=== PATIENT | male | born 1985 | race Hispanic/Latino ===

== ENCOUNTER 2017-11-14 19:58 | Emergency (ER) | payer BC ==
--- NOTE | 2017-11-14 20:44 | EDPHYS ---
Physician Documentation [facility] Name: Hector Bonilla Age: 32 yrs Sex: Male : 1985 Arrival Date: 11/14/2017 Time: 19:59 Bed 11 Private MD: Mayra James Z ED Physician Vidal Bowden HPI: 11/14 20:41 This 32 yrs old Male presents to ER via Ambulatory with complaints of Pain tw4 With Urination. 20:41 The patient presents with urinary symptoms, dysuria, urinary frequency. Onset: The tw4 symptoms/episode began/occurred today. Modifying factors: The symptoms are alleviated by nothing. Associated signs and symptoms: The patient has no apparent associated signs or symptoms. Severity of symptoms: At their worst the symptoms were moderate, in the emergency department the symptoms are unchanged. The patient has not experienced similar symptoms in the past. Historical: - Allergies: 20:37 No Known Allergies; jd3 - Home Meds: 20:37 Prilosec Oral [Active]; jd3 - PMHx: 20:37 None; jd3 - PSHx: 20:37 Cholecystectomy; thumb sx; jd3 - Immunization history:: Adult Immunizations up to date. - Social history:: Smoking status: Patient/guardian denies using tobacco. - Ebola Screening: : Patient negative for fever greater than or equal to 101.5 degrees Fahrenheit, and additional compatible Ebola Virus Disease symptoms. ROS: 20:41 Constitutional: Negative for fever, chills, and weight loss. tw4 20:41 : Positive for urinary symptoms, hematuria, foul smelling urine, Negative for injury or acute deformity, pelvic pain, flank pain, burning with urination, difficulty urinating. Exam: 20:41 Constitutional: This is a well developed, well nourished patient who is awake, alert, tw4 and in no acute distress. Head/Face: Normocephalic, atraumatic. Chest/axilla: Normal chest wall appearance and motion. Nontender with no deformity. No lesions are appreciated. Cardiovascular: Regular rate and rhythm with a normal S1 and S2. No gallops, murmurs, or rubs. Normal PMI, no JVD. No pulse deficits. Respiratory: Lungs have equal breath sounds bilaterally, clear to auscultation and percussion. No rales, rhonchi or wheezes noted. No increased work of breathing, no retractions or nasal flaring. 20:41 Abdomen/GI: Inspection: abdomen appears normal, Bowel sounds: normal, Palpation: mild abdominal tenderness, in the suprapubic area. Vital Signs: 20:37 BP 140 / 79; Pulse 83; Resp 17 S; Temp 99.5(O); Pulse Ox 97% on R/A; Weight 117.93 kg jd3 (R); Height 5 ft. 11 in. (180.34 cm) (R); Pain 8/10; 20:37 Body Mass Index 36.26 (117.93 kg, 180.34 cm) jd3 MDM: 20:27 Patient medically screened. tw4 20:41 Differential diagnosis: nonspecific abdominal pain, UTI, urinary retention, urethritis. tw4 Data reviewed: vital signs, nurses notes. Counseling: I had a detailed discussion with the patient and/or guardian regarding: the historical points, exam findings, and any diagnostic results supporting the discharge/admit diagnosis, radiology results. Special discussion: I discussed with the patient/guardian in detail that at this point there is no indication for admission to the hospital. It is understood, however, that if the symptoms persist or worsen the patient needs to return immediately for re-evaluation. 11/14 20:42 Order name: Urine Dipstick--Ancillary (enter results) 11/14 20:28 Order name: Urine Dipstick-Ancillary (obtain specimen); Complete Time: 20:41 tw4 11/14 20:42 Order name: Urine Microscopic Only 11/14 20:42 Order name: Urine Culture Administered Medications: 20:49 Drug: Cipro 500 mg Route: PO; jd3 20:49 Follow up: Response: Medication administered at discharge. jd3 Disposition: 11/14/17 20:44 Discharged to Home. Impression: Urinary tract infection, site not specified. - Condition is Stable. - Discharge Instructions: Urinary Tract Infection, Antibiotic Use, [id number]. - Prescriptions for Cipro 500 mg Oral Tablet - take 1 tablet by ORAL route every 12 hours for 10 days; 20 tablet. - Work release form, Medication Reconciliation Form, Thank You Letter, Antibiotic Education, Prescription Opioid Use form. - Follow up: Private Physician; When: As needed; Reason: Recheck today's complaints, Re-evaluation by your physician. - Problem is new. - Symptoms have improved. Signatures: Dispatcher [employer] Arturo Desai RN RN jd3 Vidal Bowden MD MD tw4 Corrections: (The following items were deleted from the chart) 20:57 20:44 11/14/2017 20:44 Discharged to Home. Impression: Urinary tract infection, site jd3 not specified. Condition is Stable. Forms are Medication Reconciliation Form, Thank You Letter, Antibiotic Education, Prescription Opioid Use. Follow up: Private Physician; When: As needed; Reason: Recheck today's complaints, Re-evaluation by your physician. Problem is new. Symptoms have improved. tw4
--- NOTE | 2017-11-14 20:44 | ER ---
Nurse's Notes [facility] Name: Hector Bonilla Age: 32 yrs Sex: Male : 1985 Arrival Date: 11/14/2017 Time: 19:59 Bed 11 Private MD: Mayra James Z Diagnosis: Urinary tract infection, site not specified Presentation: 11/14 20:33 Presenting complaint: Patient states: "Around 1700, I started having really bad pains jd3 when I urinate. I started to pee blood with clots shortly after, and now it all just feels sore and hurts when I pee.". Transition of care: patient was not received from another setting of care. Onset of symptoms was November 14, 2017. Risk Assessment: Do you want to hurt yourself or someone else? Patient reports no desire to harm self or others. Initial Sepsis Screen: Does the patient meet any 2 criteria? No. Patient's initial sepsis screen is negative. Does the patient have a suspected source of infection? No. Patient's initial sepsis screen is negative. Care prior to arrival: None. 20:33 Method Of Arrival: Ambulatory jd3 20:33 Acuity: MIGUELITO 3 jd3 Historical: - Allergies: 20:37 No Known Allergies; jd3 - Home Meds: 20:37 Prilosec Oral [Active]; jd3 - PMHx: 20:37 None; jd3 - PSHx: 20:37 Cholecystectomy; thumb sx; jd3 - Immunization history:: Adult Immunizations up to date. - Social history:: Smoking status: Patient/guardian denies using tobacco. - Ebola Screening: : Patient negative for fever greater than or equal to 101.5 degrees Fahrenheit, and additional compatible Ebola Virus Disease symptoms. Screenin:42 Abuse screen: Denies threats or abuse. Nutritional screening: No deficits noted. jd3 Tuberculosis screening: No symptoms or risk factors identified. Fall Risk Ambulatory Aid- None/Bed Rest/Nurse Assist (0 pts). Gait- Normal/Bed Rest/Wheelchair (0 pts) Mental Status- Oriented to own ability (0 pts). Total Khan Fall Scale indicates No Risk (0-24 pts). Assessment: 20:38 General: Appears uncomfortable, Behavior is calm, cooperative, appropriate for age. jd3 Pain: Complains of pain in groin Pain currently is 8 out of 10 on a pain scale. Quality of pain is described as aching, Pain began 3 hours ago. Is intermittent, Aggravated by using the restroom. Neuro: Level of Consciousness is awake, alert, obeys commands, Oriented to person, place, time, situation, Appropriate for age. Cardiovascular: Capillary refill < 3 seconds Patient's skin is warm and dry. Respiratory: Airway is patent Respiratory effort is even, unlabored, Respiratory pattern is regular, symmetrical. GI: Abdomen is round Abd is soft and non tender X 4 quads. Reports nausea. : Urine is blood tinged, Reports pain in suprapubic area scrotum, with urination, Pain is 8 out of 10 on a pain scale. Scrotal pain: sudden onset urinary frequency. EENT: No signs and/or symptoms were reported regarding the EENT system. Derm: Skin is intact, Skin is dry, Skin is normal, Skin temperature is warm. Musculoskeletal: Circulation, motion, and sensation intact. Range of motion: intact in all extremities. 20:56 Reassessment: Patient appears in no apparent distress at this time. Patient and/or jd3 family updated on plan of care and expected duration. Pain level reassessed. Patient is alert, oriented x 3, equal unlabored respirations, skin warm/dry/pink. pt reported understanding of discharge instructions, even and steady gait upon discharge. Vital Signs: 20:37 BP 140 / 79; Pulse 83; Resp 17 S; Temp 99.5(O); Pulse Ox 97% on R/A; Weight 117.93 kg jd3 (R); Height 5 ft. 11 in. (180.34 cm) (R); Pain 8/10; 20:37 Body Mass Index 36.26 (117.93 kg, 180.34 cm) jd3 ED Course: 19:59 Patient arrived in ED. ds1 20:00 Mayra James MD is Private Physician. ds1 20:17 Vidal Bowden MD is Attending Physician. tw4 20:33 Arturo Zambrano RN is Primary Nurse. jd3 20:35 Triage completed. jd3 20:38 Arm band placed on. jd3 20:42 Patient has correct armband on for positive identification. Call light in reach. Adult jd3 w/ patient. 20:56 No provider procedures requiring assistance completed. Patient did not have IV access jd3 during this emergency room visit. Administered Medications: 20:49 Drug: Cipro 500 mg Route: PO; jd3 20:49 Follow up: Response: Medication administered at discharge. jd3 Outcome: 20:44 Discharge ordered by . tw4 20:57 Discharged to home ambulatory, with family. jd3 20:57 Condition: stable 20:57 Discharge instructions given to patient, family, Instructed on discharge instructions, follow up and referral plans. medication usage, Demonstrated understanding of instructions, follow-up care, medications, Prescriptions given X 1. 20:57 Patient left the ED. jd3 Addendum: 11/18/2017 07:44 Addendum: Culture Results: Positive urine culture. No further action required. Bacteria i w sensitive to prescribed antibiotic. Signatures: Sarah Gonzalez ds1 Mignon De Luna RN RN iw Arturo Zambrano RN RN jVidal Menon MD MD tw4 Corrections: (The following items were deleted from the chart) 11/14 20:36 20:33 Initial Sepsis Screen: Does the patient meet any 2 criteria? No. Patient's jd3 initial sepsis screen is negative. Does the patient have a suspected source of infection? No. Patient's initial sepsis screen is negative. jd3
[2017-11-14] MEDS ORDERED: CIPROFLOXACIN HCL 500 MG TAB ONE (20:48)
[2017-11-14 21:01] VITALS: BP 140/79; TEMP 99.5; O2SAT 97
[2017-11-14 21:13] LABS: Urine Blood 3+ (NEG); Urine Glucose NEGATIVE (NEG); Urine Protein 3+ (NEG); Urine Specific Gravity >1.030 (1.005-1.030)
[2017-11-14 23:37] LABS: Urine Culture Reflex Order NOT NEEDED
[2017-11-14 23:40] LABS: Urine RBC TNTC /HPF (NONE SEEN)
[2017-11-14 23:41] LABS: Urine Bacteria <20 /HPF (NONE SEEN)
== END 2017-11-14 20:57 | disposition home or self-care (01) ==
LOC: ER 19:58
DX: N39.0 Urinary tract infection, site not specified (principal)
CPT/HCPCS: 81003; 81015; 87077; 87086; 87088; 87186; 99283